=== PATIENT | female | born 2000 | race Caucasian/White ===

== ENCOUNTER 2024-02-28 21:37 | Inpatient (IN) | payer OTHER ==
[~2024-02-28] VITALS: Ht 157.5 cm; Wt 60.0 kg
[2024-02-28 22:23] LABS: BASOPHILS ABSOLUTE AUTO 0.06 K/mm3 (0.00-0.23); BASOPHILS PERCENT AUTO 0 % (0-2); EOSINOPHILS ABSOLUTE AUTO 0.13 K/mm3 (0.00-0.68); EOSINOPHILS PERCENT AUTO 1 % (0-6); Hematocrit 36.6 % (33.0-51.0); Hemoglobin 12.9 g/dL (11.5-16.0); IMMATURE GRAN ABSOLUTE AUTO 0.05 K/mm3 (0.00-0.10); IMMATURE GRAN PERCENT AUTO 0 % (0-1); LYMPHOCYTES ABSOLUTE AUTO 3.28 K/mm3 (0.84-5.20); LYMPHOCYTES PERCENT AUTO 20 % (21-46); MONOCYTES ABSOLUTE AUTO 1.13 K/mm3 (0.16-1.47); MONOCYTES PERCENT AUTO 7 % (4-13); Mean Corpuscular HGB 31.8 pg (26.0-34.0); Mean Corpuscular HGB Conc 35.2 g/dL (31.5-36.5); Mean Corpuscular Volume 90 fL (80-100); Mean Platelet Volume 8.1 fL (9.1-12.4); NEUTROPHILS ABSOLUTE AUTO 11.87 K/mm3 (1.96-9.15); NEUTROPHILS PERCENT AUTO 72 % (41-73); Platelet Count 375 K/mm3 (150-400); RDW Coefficient Variation 12.2 % (11.7-14.2); RDW Standard Deviation 40.2 fL (35.1-46.3); Red Blood Cell Count 4.06 M/mm3 (3.80-5.20); White Blood Cell Count 16.52 K/mm3 (4.00-11.30)
[2024-02-28 22:42] LABS: Albumin, Blood 3.5 g/dL (3.4-5.0); Albumin/Globulin Ratio 0.9 (0.8-1.8); Bilirubin, Total 0.7 mg/dL (0.1-1.0); Creatinine, Blood 0.42 mg/dL (0.40-1.00); Globulin, Blood 3.9 g/dL (2.2-4.0); Potassium, Blood 3.2 mmol/L (3.5-5.5); Total Protein, Blood 7.4 g/dL (6.4-8.2)
[2024-02-28] MEDS ORDERED: ChlordiazePOXIDE 25 MG Cap PO ONE (23:20)
[2024-02-28] MEDS ORDERED: NS 1,000 ML IV SCH (23:25)
[2024-02-28] MEDS ORDERED: Potassium Chloride 10 Meq Tablet SA PO ONE (23:25)
[2024-02-29] VITALS (7 sets, daily range): BP systolic 109–129; BP diastolic 65–96
[2024-02-29 00:01] LABS: C-REACTIVE PROTEIN, EXT RANGE 2.62 mg/dL (0.000-0.300)
[2024-02-29 00:11] LABS: Magnesium, Blood 1.8 mg/dL (1.6-2.4)
[2024-02-29] MEDS ORDERED: Vancomycin HCL 1,500 MG in NS 250 ML IV ONE (00:20)
[2024-02-29] MEDS ORDERED: Ketorolac Tromethamine 15mg Vial IV ONE (01:00)
[2024-02-29] MEDS ORDERED: HYDROcodone 5-APAP 325 TAB PO ONE (01:00)
[2024-02-29 01:50] LABS: Phosphorus, Blood 3.7 mg/dL (2.5-4.9)
[2024-02-29] MEDS ORDERED: NS 1,000 ML IV SCH (02:00)
[2024-02-29] MEDS ORDERED: Ondansetron 4 MG TAB PO PRN (02:00)
[2024-02-29] MEDS ORDERED: Metoclopramide HCl 5MG / ML 2ML Vial IV PRN (02:00)
[2024-02-29] MEDS ORDERED: FLU VACC TS2024-25(6MOS UP)/PF 45 MCG/0.5 ML SYRINGE IM ONE ×2 (02:05→03:25)
[2024-02-29] MEDS ORDERED: TRAZ100 PO (03:25)
[2024-02-29] MEDS ORDERED: Inderal40 MG PO (03:26)
[2024-02-29] MEDS ORDERED: HYDHCL25 PO (03:27)
[2024-02-29] MEDS ORDERED: PROZAC40 MG PO (03:28)
[2024-02-29] MEDS ORDERED: LORazepam 2 MG/ML 1ML Injection IV PRN ×2 (03:40)
[2024-02-29] MEDS ORDERED: ChlordiazePOXIDE 25 MG Cap PO PRN (03:40)
[2024-02-29] MEDS ORDERED: HydrOXYzine Pamoate 50 MG Cap PO ONE (04:10)
[2024-02-29] MEDS ORDERED: Morphine Sulfate 15 MG TABCR PO PRN (04:15)
[2024-02-29 04:21] LABS: BASOPHILS ABSOLUTE AUTO 0.05 K/mm3 (0.00-0.23); BASOPHILS PERCENT AUTO 0 % (0-2); EOSINOPHILS ABSOLUTE AUTO 0.09 K/mm3 (0.00-0.68); EOSINOPHILS PERCENT AUTO 1 % (0-6); Hematocrit 32.4 % (33.0-51.0); Hemoglobin 11.3 g/dL (11.5-16.0); IMMATURE GRAN ABSOLUTE AUTO 0.04 K/mm3 (0.00-0.10); IMMATURE GRAN PERCENT AUTO 0 % (0-1); LYMPHOCYTES ABSOLUTE AUTO 3.04 K/mm3 (0.84-5.20); LYMPHOCYTES PERCENT AUTO 23 % (21-46); MONOCYTES ABSOLUTE AUTO 0.91 K/mm3 (0.16-1.47); MONOCYTES PERCENT AUTO 7 % (4-13); Mean Corpuscular HGB 31.4 pg (26.0-34.0); Mean Corpuscular HGB Conc 34.9 g/dL (31.5-36.5); Mean Corpuscular Volume 90 fL (80-100); Mean Platelet Volume 8.4 fL (9.1-12.4); NEUTROPHILS ABSOLUTE AUTO 9.41 K/mm3 (1.96-9.15); NEUTROPHILS PERCENT AUTO 69 % (41-73); Platelet Count 301 K/mm3 (150-400); RDW Coefficient Variation 12.4 % (11.7-14.2); RDW Standard Deviation 40.4 fL (35.1-46.3); White Blood Cell Count 13.54 K/mm3 (4.00-11.30)
[2024-02-29 04:45] LABS: Albumin, Blood 2.9 g/dL (3.4-5.0); Albumin/Globulin Ratio 0.9 (0.8-1.8); Bilirubin, Total 0.7 mg/dL (0.1-1.0); Bun/Creatinine Ratio 12.6 (12.0-20.0); Creatinine, Blood 0.4 mg/dL (0.40-1.00); Globulin, Blood 3.4 g/dL (2.2-4.0); Potassium, Blood 3.2 mmol/L (3.5-5.5); Total Protein, Blood 6.3 g/dL (6.4-8.2)
[2024-02-29 05:23] LABS: Thyroid Stimulating Hormone 0.539 uIU/mL (0.360-4.800)
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
[2024-02-29] MEDS ORDERED: Ampicillin Sod/Sulbactam Sod 3 GM in NS 100 ML IV SCH (06:56)
[2024-02-29] MEDS ORDERED: Potassium Chloride 20 MEQ TabCR PO ONE (07:00)
[2024-02-29] MEDS ORDERED: Potassium Chloride 20 MEQ TabCR PO SCH (07:30)
[2024-02-29] MEDS ORDERED: Thiamine HCl 100 MG Tab PO SCH (08:00)
[2024-02-29] MEDS ORDERED: Ketorolac Tromethamine 15mg Vial IV PRN (08:05)
[2024-02-29] MEDS ORDERED: HyDROXyzine HCl 25 MG Tab PO PRN (08:25)
[2024-02-29 08:43] LABS: U Amphetamine Screen Not Detected; U Barbituate Screen Not Detected; U Benzodiazapine Screen DETECTED; U Buprenorphine Screen Not Detected; U Cannabinoids Screen Not Detected; U Cocaine Screen Not Detected; U Methadone Screen Not Detected; U Methamphetamine Screen Not Detected; U Opiates Screen DETECTED; U Oxycodone Screen Not Detected; U Phencyclidine Screen Not Detected
[2024-02-29] MEDS ORDERED: OxyCODONE HCL 5 MG TAB PO PRN (08:45)
[2024-02-29] MEDS ORDERED: Famotidine 20 MG Tab PO SCH (09:00)
[2024-02-29] MEDS ORDERED: Morphine Sulfate 15 MG TABCR PO SCH (09:00)
[2024-02-29] MEDS ORDERED: Lactobacil 2-S.Thermo-Bifido 1 1 Cap PO SCH (09:00)
[2024-02-29] MEDS ORDERED: Nicotine 7 MG PATCH TOP SCH (09:00)
[2024-02-29] MEDS ORDERED: Folic Acid 1 MG TAB PO SCH (09:00)
[2024-02-29] MEDS ORDERED: Enoxaparin 40 MG/0.4 ML SYR SC SCH (09:00)
[2024-02-29] MEDS ORDERED: Vancomycin HCL 750 MG in NS 250 ML IV SCH (11:00)
--- NOTE | 2024-02-29 17:52 | NUR ---
SHIFT SUMMARY; NO ACUTE CHANGE FOR THE SHIFT. PT HAS BEEN ALERT AND ORIENTED X4 AT BASELINE, INDEPENDENT TO THE BATHROOM, CIWA 3-5. MEDICATED FOR PAIN IN THE LEFT AXILLA THREE TIMES FOR THE SHIFT. ABD ERIKA WAS DONE, HEPATOMEGALY NOTED PT MADE AWARE OF THE RESULT. FRIENDS AT THE BEDSIDE TO VISIT. LEFT ARM SWELLING HAS IMPROVED PER PT. PT HAS BEEN EATING AND DRINKING WITHOUT ISSUES. VITALS HRR ST 100-130'S, SBP 115, SATS ABOVE 95% ON RA, AFEBRILE. PLEASANT AND COOPERATIVE WITH CARES. WILL REPORT TO ONCOMING SHIFT
[2024-03-01 02:24] LABS: BASOPHILS ABSOLUTE AUTO 0.06 K/mm3 (0.00-0.23); BASOPHILS PERCENT AUTO 1 % (0-2); EOSINOPHILS ABSOLUTE AUTO 0.23 K/mm3 (0.00-0.68); EOSINOPHILS PERCENT AUTO 3 % (0-6); Hematocrit 34.6 % (33.0-51.0); Hemoglobin 11.9 g/dL (11.5-16.0); IMMATURE GRAN ABSOLUTE AUTO 0.03 K/mm3 (0.00-0.10); IMMATURE GRAN PERCENT AUTO 0 % (0-1); LYMPHOCYTES ABSOLUTE AUTO 2.34 K/mm3 (0.84-5.20); LYMPHOCYTES PERCENT AUTO 26 % (21-46); MONOCYTES ABSOLUTE AUTO 0.86 K/mm3 (0.16-1.47); MONOCYTES PERCENT AUTO 9 % (4-13); Mean Corpuscular HGB 31.6 pg (26.0-34.0); Mean Corpuscular HGB Conc 34.4 g/dL (31.5-36.5); Mean Corpuscular Volume 92 fL (80-100); Mean Platelet Volume 8.7 fL (9.1-12.4); NEUTROPHILS ABSOLUTE AUTO 5.67 K/mm3 (1.96-9.15); NEUTROPHILS PERCENT AUTO 62 % (41-73); Platelet Count 269 K/mm3 (150-400); RDW Coefficient Variation 12.5 % (11.7-14.2); RDW Standard Deviation 41.5 fL (35.1-46.3); Red Blood Cell Count 3.77 M/mm3 (3.80-5.20); White Blood Cell Count 9.19 K/mm3 (4.00-11.30)
[2024-03-01 02:46] LABS: Bun/Creatinine Ratio 12.6 (12.0-20.0); Calcium, Blood 8.7 mg/dL (8.5-10.1); Creatinine, Blood 0.56 mg/dL (0.40-1.00)
[2024-03-01 02:52] LABS: Vancomycin, Trough 12.1 ug/mL (5.0-10.0)
[2024-03-01] MEDS ORDERED: Vancomycin HCL 1,000 MG in NS 250 ML IV SCH (03:14)
[2024-03-01 03:45] VITALS: BP 117/90
--- NOTE | 2024-03-01 06:22 | NUR ---
shift summary no acute events this shift, vss, afebrile, ciwa 7 with librium x1 po, medicated with toradol x1 for pain to left armpit. side rails up x2 call light in reach
[2024-03-01 08:19] VITALS: BP 125/99; BP 139/99
--- NOTE | 2024-03-01 09:20 | NUR ---
REPORT WAS CALLED TO MEDICAL FLOOR NURSE TAKING PATIENT. PATIENT AWARE AND GATHERING STUFF TO HEAD UP, FAMILY MADE AWARE.
--- NOTE | 2024-03-01 09:32 | NUR ---
TRANSFER NOTE: PATIENT IS ALERT AND ORIENTED AND WAS TRANSFFERED VIA WHEELCHAIR WITH ALL PERSONAL BELONGINGS. TELE WAS REMOVED PRIOR TO LEAVING AND PATIENT NOTIFIED FAMILY ABOUT THE CHANGE IN ROOM.
[2024-03-01] MEDS ORDERED: SULTRIDS PO (11:33)
--- NOTE | 2024-03-01 12:11 | NUR ---
patietn last doses of antibiotics infusiong, and then patient to be discharged home, family/friends at bedside now
--- NOTE | 2024-03-01 14:01 | NUR ---
PATIENT DISCAHRGED GOME, PATIENT AND FRIENDS STATED UNDERSTANDING OF FOLLOW UP NEEDS, MEDICATIONS, AND INSTRUCTIONS. BOTH DENIED FURTHER QUESTIONS
[2024-03-01 17:22] LABS: HEPATITIS A ANTIBODY, IGM Negative (Negative); HEPATITIS B CORE ANTIBODY, IGM Negative (Negative); HEPATITIS B SURFACE ANTIGEN Negative (Negative); HEPATITIS C AB CIA INTERP Negative (Negative)
[2024-03-01 18:03] LABS: HIV 1,2 COMBO ANTIGEN/ANTIBODY Negative (Negative)
== END 2024-03-01 13:56 | disposition home or self-care (01) | DRG 872 ==
LOC: ER 21:37 → PCU 02-29 01:30 → MEDS 03-01 09:29 → ENPENDDIS 03-01 11:29 → MEDS 03-01 13:56
PROVIDERS: Emergency Medicine; Internal Medicine; Physician Assistant; Student in an Organized Health Care Education/Training Program; ADMIT Internal Medicine
DX: A41.9 Sepsis, unspecified organism (principal); L03.112 Cellulitis of left axilla; Z59.01 Sheltered homelessness; R65.20 Severe sepsis without septic shock; Z23 Encounter for immunization; F17.210 Nicotine dependence, cigarettes, uncomplicated; F32.9 Major depressive disorder, single episode, unspecified; F41.9 Anxiety disorder, unspecified; F43.10 Post-traumatic stress disorder, unspecified; E87.6 Hypokalemia; F10.20 Alcohol dependence, uncomplicated; F15.90 Other stimulant use, unspecified, uncomplicated
CPT/HCPCS: 36415; 73201; 76705; 80048; 80053; 80074; 80202; 80320; 83605; 83735; 84100; 84443; 84703; 85025; 86140; 87040; 87389; 90656; 96365-59; 99284-25; A9270; G0008; J0295; J1650; J1885; J3370; J7030; J7050; Q9967

== ENCOUNTER 2024-03-14 03:46 | Observation (INO) | payer OTHER ==
[~2024-03-14] VITALS: Ht 157.5 cm; Wt 61.2 kg
[~2024-03-14 03:46] MED LIST: HYDHCL25 PO; Inderal40 MG PO; PROZAC40 MG PO; SULTRIDS PO; TRAZ100 PO
[2024-03-14] MEDS ORDERED: Naloxone HCl 1MG / ML 2ML SYR IV PRN (04:05)
[2024-03-14] MEDS ORDERED: NS 1,000 ML IV SCH ×2 (04:10→05:45)
[2024-03-14 04:21] LABS: BASOPHILS ABSOLUTE AUTO 0.11 K/mm3 (0.00-0.23); BASOPHILS PERCENT AUTO 1 % (0-2); EOSINOPHILS ABSOLUTE AUTO 0.13 K/mm3 (0.00-0.68); EOSINOPHILS PERCENT AUTO 1 % (0-6); Hematocrit 50.7 % (33.0-51.0); Hemoglobin 17.2 g/dL (11.5-16.0); Mean Corpuscular HGB 31.2 pg (26.0-34.0); Mean Corpuscular HGB Conc 33.9 g/dL (31.5-36.5); Mean Corpuscular Volume 92 fL (80-100); Mean Platelet Volume 8.4 fL (9.1-12.4); Platelet Count 444 K/mm3 (150-400); RDW Coefficient Variation 13.3 % (11.7-14.2); RDW Standard Deviation 44.5 fL (35.1-46.3); Red Blood Cell Count 5.52 M/mm3 (3.80-5.20); White Blood Cell Count 10.45 K/mm3 (4.00-11.30)
[2024-03-14 04:23] LABS: IMMATURE GRAN ABSOLUTE AUTO 0.17 K/mm3 (0.00-0.10); IMMATURE GRAN PERCENT AUTO 2 % (0-1); LYMPHOCYTES PERCENT AUTO 51 % (21-46); MONOCYTES ABSOLUTE AUTO 0.52 K/mm3 (0.16-1.47); MONOCYTES PERCENT AUTO 5 % (4-13); NEUTROPHILS ABSOLUTE AUTO 4.22 K/mm3 (1.96-9.15); NEUTROPHILS PERCENT AUTO 40 % (41-73)
[2024-03-14 04:48] LABS: Albumin, Blood 4.8 g/dL (3.4-5.0); Bilirubin, Total 0.5 mg/dL (0.1-1.0); Bun/Creatinine Ratio 11.5 (12.0-20.0); Calcium, Blood 9.7 mg/dL (8.5-10.1); Creatinine, Blood 0.87 mg/dL (0.40-1.00); Globulin, Blood 4.9 g/dL (2.2-4.0); Potassium, Blood 3.5 mmol/L (3.5-5.5); Total Protein, Blood 9.7 g/dL (6.4-8.2)
[2024-03-14] MEDS ORDERED: Lidocaine 4% 1 Patch TOP ONE (05:00)
[2024-03-14] MEDS ORDERED: FLU VACC TS2024-25(6MOS UP)/PF 45 MCG/0.5 ML SYRINGE IM ONE (05:50)
[2024-03-14] MEDS ORDERED: Ondansetron HCl 2 MG / ML 2ML Vial IV PRN (05:50)
[2024-03-14] MEDS ORDERED: NS 1,000 ML IV ONE (05:50)
[2024-03-14] MEDS ORDERED: Potassium Chl 20MEQ/Water100ML 100 ML IV SCH (06:45)
[2024-03-14] MEDS ORDERED: Lactated Ringer's 1,000 ML IV ONE (08:00)
[2024-03-14] MEDS ORDERED: LORazepam 1 MG Tab PO ONE (09:40)
[2024-03-14 11:22] LABS: U Amphetamine Screen DETECTED; U Barbituate Screen Not Detected; U Benzodiazapine Screen DETECTED; U Buprenorphine Screen Not Detected; U Cannabinoids Screen DETECTED; U Cocaine Screen Not Detected; U Methadone Screen Not Detected; U Methamphetamine Screen DETECTED; U Opiates Screen Not Detected; U Oxycodone Screen Not Detected; U Phencyclidine Screen Not Detected
[2024-03-14] MEDS ORDERED: LORA1 PO (11:59)
[2024-03-14] MEDS ORDERED: TRAZ50 PO (11:59)
== END 2024-03-14 12:59 | disposition other institution (70) ==
LOC: ER 03:46 → ERHOLD 03:47
PROVIDERS: Emergency Medicine; Family Medicine; ADMIT Internal Medicine
DX: T40.412A Poisoning by fentanyl or fentanyl analogs, intentional self-harm, initial encounter (principal); T43.652A Poisoning by methamphetamines intentional self-harm, initial encounter; F32.9 Major depressive disorder, single episode, unspecified; F43.10 Post-traumatic stress disorder, unspecified; F10.20 Alcohol dependence, uncomplicated; F17.210 Nicotine dependence, cigarettes, uncomplicated; Z79.899 Other long term (current) drug therapy
CPT/HCPCS: 71046; 71120; 80053; 83735; 83880; 84703; 85025; 93005; 93010; 96361; 96365; 96366; 99285-25; A9270; G0378; J3480; J7030; J7120

== ENCOUNTER 2024-06-28 02:06 | Emergency (ER) | payer OTHER ==
[~2024-06-28] VITALS: Ht 160 cm; Wt 54.4 kg
[~2024-06-28 02:06] MED LIST changes: +LORA1 PO; +TRAZ50 PO
[2024-06-28] MEDS ORDERED: RX Prepack 2 Sprays Naloxone HCL 4 MG/SPRAY UD ONE (05:05)
== END 2024-06-28 05:28 | disposition home or self-care (01) ==
LOC: ER 02:06
DX: T40.411A Poisoning by fentanyl or fentanyl analogs, accidental (unintentional), initial encounter (principal); R00.0 Tachycardia, unspecified; M54.50 Low back pain, unspecified; F10.90 Alcohol use, unspecified, uncomplicated; F17.200 Nicotine dependence, unspecified, uncomplicated; F32.9 Major depressive disorder, single episode, unspecified; Z79.899 Other long term (current) drug therapy
CPT/HCPCS: 93005; 93010; 99284-25; A9270